=== PATIENT | female | born 1980 | race Two or more races ===

== ENCOUNTER 2020-02-15 07:41 | Inpatient (IN) | payer MEDICAID, OTHER ==
[~2020-02-15] VITALS: Ht 162.6 cm; Wt 101.5 kg
[2020-02-15 08:11] LABS: Urine Amorphous Crystal FEW /hpf (None Seen); Urine Bacteria NONE SEEN /hpf (None Seen); Urine Blood Negative /uL (Negative); Urine Mucus FEW (None Seen); Urine Specific Gravity 1.022 (1.001-1.035); Urine WBC 1 /hpf (0 - 5)
[2020-02-15 08:15] LABS: Basophils # (auto) 0.1 10 ^3/uL (0-0.2); Basophils % (auto) 0.7 % (0.0-2.0); Eosinophils # (auto) 0.1 10 ^3/uL (0-0.8); Eosinophils % (auto) 1.1 % (0.0-7.0); Hematocrit 39.1 % (36.0-46.0); Hemoglobin 12.9 g/dL (12.2-16.2); Lymphocytes # (auto) 1.8 10 ^3/uL (0.4-5.4); Lymphocytes % (auto) 18.1 % (10.0-50.0); Mean Corpuscular Hemoglobin 27.5 pg (28.0-32.0); Mean Corpuscular Hgb Conc. 32.8 g/dL (32.0-36.0); Mean Corpuscular Volume 83.8 fL (80.0-100.0); Monocytes # (auto) 0.4 10 ^3/uL (0-1.3); Monocytes % (auto) 3.9 % (0.0-12.0); Neutrophils # (auto) 7.6 10 ^3/uL (1.6-8.6); Neutrophils % (auto) 76.2 % (37.0-80.0); Platelet Count (auto) 310 10^3/uL (140-450); Red Blood Cells 4.67 10^6/uL (4.0-5.20)
[2020-02-15] MEDS ORDERED: KETOROLAC TROMETH 60MG/2ML VIAL IM ONE (08:15)
[2020-02-15 08:31] LABS: Albumin 3.3 g/dL (3.4-5.0); BUN/Creatinine Ratio 8.4; Calcium 7.9 mg/dL (8.5-10.1); Potassium 3.4 mmol/L (3.5-5.1)
[2020-02-15 08:34] LABS: Bilirubin, Total 0.3 mg/dL (0.2-1.0); Total Protein 7.3 g/dL (6.4-8.2)
[2020-02-15] MEDS ORDERED: cefTRIAXone 1GM/50ML D5W 50 ML IV ONE (09:45)
[2020-02-15] MEDS ORDERED: SODIUM CHLORIDE 0.9% 1,000 ML IV ONE (09:45)
[2020-02-15] MEDS ORDERED: ONDANSETRON HCL 4 MG/2 ML VIAL IV ONE (10:00)
[2020-02-15] MEDS ORDERED: SODIUM CHLORIDE 0.9% 1,000 ML IV SCH (10:59)
[2020-02-15] MEDS ORDERED: DEXTROSE (50%) 50ML SYRG IV PRN (11:00)
[2020-02-15] MEDS ORDERED: MORPHINE SULF INJ 2 MG/ML SYRINGE 1ML IV PRN (11:00)
[2020-02-15] MEDS ORDERED: PROMETHAZINE HCL 25 MG/ML 1ML IV PRN (11:00)
[2020-02-15 11:41] LABS: INR 0.98 (0.9-1.15)
[2020-02-15] MEDS: ACCU-CHEK COMFORT CURVE STRIP VI SCH ×2 (12:00→17:52)
[2020-02-15] MEDS: MORPHINE SULF INJ 2 MG/ML SYRINGE 1ML IV PRN ×3 (12:28→21:21)
[2020-02-15 13:00] VITALS: BP 133/72
[2020-02-15] MEDS: FAMOTIDINE (10MG/ML) 2ML VL IV SCH ×2 (13:06→23:29)
[2020-02-15 13:31] LABS: INR 1.02 (0.9-1.15); Partial Thromboplastin Time 29.3 sec (23.64-32.05)
[2020-02-15] MEDS ORDERED: metroNIDAZOLE 500MG/100ML 100 ML IV SCH (14:00)
[2020-02-15] MEDS ORDERED: ceFAZolin 1GM/50ML 50 ML IV ONE (14:10)
[2020-02-15] MEDS ORDERED: SUCCINYLCHOLINE CHLORIDE 20 MG/ML 10ML VIAL IV ONE (14:53)
[2020-02-15] MEDS ORDERED: LIDOCAINE 1% (LOCAL ANESTH.) PF 5ml SDV ONE (14:53)
[2020-02-15] MEDS ORDERED: MIDAZOLAM HCL 1MG/1ML-2 ML VIAL ONE (14:56)
[2020-02-15] MEDS ORDERED: NALOXONE HCL 0.4 MG/ML VIAL IV PRN (15:00)
[2020-02-15] MEDS ORDERED: ROCURONIUM 10MG/ML 10ML VIAL IV ONE (15:00)
[2020-02-15] MEDS ORDERED: HYDROmorphone HCL 2 MG/ML VL IV PRN ×3 (15:00→15:45)
[2020-02-15] MEDS ORDERED: PROPOFOL 10 MG/ML 20 ML IV ONE (15:00)
[2020-02-15] MEDS ORDERED: ONDANSETRON HCL 4 MG/2 ML VIAL IV PRN ×2 (15:00→15:45)
[2020-02-15] MEDS ORDERED: METOCLOPRAMIDE HCL 5MG/ml INJ 2ml VIAL ONE (15:07)
[2020-02-15] MEDS ORDERED: fentaNYL CITRATE 100 MCG/2 ML VL ONE (15:09)
[2020-02-15] MEDS ORDERED: POVIDONE IODINE 10 % TOPICAL OINT 30GM TOP ONE (15:35)
[2020-02-15] MEDS ORDERED: GLYCOPYRROLATE 0.2 MG/ML 1ML VIAL ONE (15:40)
[2020-02-15] MEDS ORDERED: NEOSTIGMINE 1 MG/ML INJ (10mg/10ML VIAL) ONE (15:40)
[2020-02-15] MEDS: D5W/SOD CHL 0.45%/KCL 20MEQ 1,000 ML IV SCH (17:52)
[2020-02-15 19:45] VITALS: BP 113/65
[2020-02-15 20:15] VITALS: BP 135/75
[2020-02-15] MEDS: ceFAZolin 1GM/50ML 50 ML IV SCH (20:58)
[2020-02-15 21:54] VITALS: BP 113/65
[2020-02-15] MEDS: metroNIDAZOLE 500MG/100ML 100 ML IV SCH (22:05)
[2020-02-16] MEDS: D5W/SOD CHL 0.45%/KCL 20MEQ 1,000 ML IV SCH ×2 (02:33→11:45)
[2020-02-16 05:32] LABS: Basophils # (auto) 0 10 ^3/uL (0-0.2); Basophils % (auto) 0.5 % (0.0-2.0); Eosinophils # (auto) 0.1 10 ^3/uL (0-0.8); Eosinophils % (auto) 1.5 % (0.0-7.0); Hematocrit 35.8 % (36.0-46.0); Lymphocytes # (auto) 1.7 10 ^3/uL (0.4-5.4); Lymphocytes % (auto) 17.9 % (10.0-50.0); Mean Corpuscular Hemoglobin 27.9 pg (28.0-32.0); Mean Corpuscular Hgb Conc. 33.5 g/dL (32.0-36.0); Mean Corpuscular Volume 83.3 fL (80.0-100.0); Monocytes # (auto) 0.6 10 ^3/uL (0-1.3); Monocytes % (auto) 5.8 % (0.0-12.0); Neutrophils # (auto) 7.1 10 ^3/uL (1.6-8.6); Neutrophils % (auto) 74.3 % (37.0-80.0); Platelet Count (auto) 276 10^3/uL (140-450); Red Cell Distribution Width 14.3 % (11.8-14.3); White Blood Cell 9.5 10^3/uL (4.4-10.8)
[2020-02-16] MEDS: ceFAZolin 1GM/50ML 50 ML IV SCH ×3 (05:45→21:14)
[2020-02-16 05:48] LABS: Calcium 7.9 mg/dL (8.5-10.1); Potassium 3.7 mmol/L (3.5-5.1)
[2020-02-16 05:49] VITALS: BP 115/72
[2020-02-16 05:52] LABS: BUN/Creatinine Ratio 8.6; Bilirubin, Total 0.5 mg/dL (0.2-1.0); Total Protein 6.4 g/dL (6.4-8.2)
[2020-02-16] MEDS: ACCU-CHEK COMFORT CURVE STRIP VI SCH ×5 (05:57→23:33)
[2020-02-16] MEDS: metroNIDAZOLE 500MG/100ML 100 ML IV SCH ×3 (06:39→22:02)
[2020-02-16 08:00] VITALS: BP 117/70
[2020-02-16] MEDS ORDERED: cefTRIAXone 1GM/50ML D5W 50 ML IV SCH (09:00)
[2020-02-16] MEDS: ENOXAPARIN SOD 40 MG/0.4 ML SYRINGE SC SCH (10:00)
[2020-02-16] MEDS: FAMOTIDINE (10MG/ML) 2ML VL IV SCH ×2 (10:08→22:43)
[2020-02-16 12:00] VITALS: BP 110/66
[2020-02-16] MEDS: ACETAMINOPHEN 325 MG TAB PO PRN ×2 (12:08→22:11)
[2020-02-16] MEDS ORDERED: ACET-1304 PO (13:56)
[2020-02-16] MEDS ORDERED: MULTTAB61 PO (13:56)
[2020-02-16 16:58] VITALS: BP 128/68
[2020-02-16 21:45] VITALS: BP 109/66
[2020-02-17] MEDS: ceFAZolin 1GM/50ML 50 ML IV SCH ×2 (04:56→13:23)
[2020-02-17 05:04] VITALS: BP 109/61
[2020-02-17] MEDS: ACCU-CHEK COMFORT CURVE STRIP VI SCH ×2 (05:32→12:00)
[2020-02-17] MEDS: metroNIDAZOLE 500MG/100ML 100 ML IV SCH ×2 (06:01→14:45)
[2020-02-17 08:00] VITALS: BP 99/68
[2020-02-17 09:30] VITALS: BP 99/68
[2020-02-17] MEDS: ENOXAPARIN SOD 40 MG/0.4 ML SYRINGE SC SCH (10:00)
[2020-02-17] MEDS: FAMOTIDINE (10MG/ML) 2ML VL IV SCH (10:53)
[2020-02-17 12:57] VITALS: BP 118/74
[2020-02-17 16:43] VITALS: BP 128/74
== END 2020-02-17 18:30 | disposition home or self-care (01) | DRG 263 ==
LOC: ER 07:41 → OVERFLOW 07:42 → WEST WING 11:26
PROVIDERS: ADMIT Internal Medicine; ATTEND Internal Medicine Nephrology
PROC: 0FT44ZZ Resection of Gallbladder, Percutaneous Endoscopic Approach (ICD-10-PCS; principal; 2020-02-15 14:51)
DX: K80.00 Calculus of gallbladder with acute cholecystitis without obstruction (principal); E44.0 Moderate protein-calorie malnutrition; K76.0 Fatty (change of) liver, not elsewhere classified; E66.01 Morbid (severe) obesity due to excess calories; R73.9 Hyperglycemia, unspecified; F41.9 Anxiety disorder, unspecified; K59.00 Constipation, unspecified; E87.6 Hypokalemia; Z68.38 Body mass index [BMI] 38.0-38.9, adult; Z83.3 Family history of diabetes mellitus; Z98.51 Tubal ligation status; Z79.899 Other long term (current) drug therapy
CPT/HCPCS: 36415; 76705; 78226; 80053; 81001; 81025; 83036; 83690; 85025; 85610; 85730; 86850; 86900; 86901; 96365; 96372; 96375; G0378; J0330; J0690; J0696; J1885; J2250; J2405; J2704; J3490